=== PATIENT | male | born 1980 | race African-American/Black ===

== ENCOUNTER 2019-04-16 17:32 | Emergency (ER) | payer SELFPAY ==
[~2019-04-16] VITALS: Ht 180.3 cm; Wt 77.1 kg
[2019-04-16 17:41] VITALS: BP 146/75
[2019-04-16 18:09] LABS: BILIRUBIN,URINE NEGATIVE (NEG); CLARITY,URINE CLEAR; COLOR,URINE YELLOW; NITRITE,URINE NEGATIVE (NEG); PH,URINE 6.5; PROTEIN,URINE NEGATIVE (NEG-TRACE)
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
[2019-04-16 18:14] LABS: SQUAMOUS EPITHELIAL CELL,UR FEW /LPF
[2019-04-16 18:15] LABS: BACTERIA,URINE 0 /HPF (0-FEW); RBC,URINE RARE /HPF (0-2)
[2019-04-16] MEDS ORDERED: cefTRIAXone IM 1 GM VIAL IM ONE (18:45)
[2019-04-16] MEDS ORDERED: AZITHROMYCIN 250 MG TABLET. PO ONE (18:45)
--- NOTE | 2019-04-16 18:51 | RAD ---
Testicle ultrasound HISTORY: Right testicle pain. FINDINGS: Right side: Right testicle measures 4.0 x 3.6 x 2.8 cm. Intact blood supply. No significant hypervascularity to the testicle which demonstrates a homogeneous echotexture. No focal lesion. Right epididymis demonstrates diffuse mild hypervascularity. Probable small right varicocele. Small hydrocele. Tiny hypoechoic lesion in the right testicle measuring 3 mm, superiorly, likely a small cyst. Left side: Left testicle measures 3.5 x 3.7 x 2.2 cm with intact blood supply and homogeneous echotexture. Left epididymis appears within normal limits. Probable small varicocele. Small hydrocele. IMPRESSION: 1. Mild right epididymal hypervascularity, most likely due to epididymitis, but recommend short-term scrotal ultrasound follow-up. 2. Tiny 3 mm lesion appears to be within the superior right testicle, most likely a cyst. 3. Small hydroceles, probable small varicoceles. Electronically signed by: Audie Daly MD (04/16/2019 6:49 PM) [id number]
[2019-04-16] MEDS ORDERED: CIPR500T95 PO (19:05)
[2019-04-16] MEDS ORDERED: HYDR-3164 PO (19:05)
[2019-04-16] MEDS ORDERED: IBUP-1060 PO (19:05)
== END 2019-04-16 19:17 | disposition home or self-care (01) ==
LOC: ER 17:32
DX: N45.1 Epididymitis (principal); N39.0 Urinary tract infection, site not specified; N43.3 Hydrocele, unspecified
CPT/HCPCS: 76870; 81001; 87086; 87491; 87591; 96372; 99285; J0696; Q0144